=== PATIENT | male | born 1980 | race Caucasian/White ===

== ENCOUNTER 2021-03-26 09:00 | Emergency (ER) | payer MEDICAID, SELFPAY ==
[2021-03-26 09:01] VITALS: BP 146/92; PULSE 75; RESP 18; TEMP 36.4; O2SAT 97; BMI 27.6
[2021-03-26 09:37] VITALS: BP 146/92; PULSE 75; RESP 16; TEMP 36.2; O2SAT 96
--- NOTE | 2021-03-26 10:31 | EDS_ITS ---
HPI History of Present Illness Chief Complaint: Nausea/Vomiting/Diarrhea Informant: patient Narrative Narrative: 40-year-old male presenting to the emergency room with vomiting and diarrhea. Patient states that on Tuesday he started having nausea and diarrhea. He does note he has had a couple episodes of vomiting but mostly has been diarrhea. He is tried some Pepto-Bismol with no relief. He states whenever he eats or drinks anything he has diarrhea. No fevers. He denies any obvious bad food exposures. No recent antibiotics. No one else sick at home. PFSH PFSH Medical History no medical history Home Medications ciprofloxacin HCl 500 mg PO BID #10 tablet 03/26/21 [Rx Last Taken Unknown] multivitamin [Multiple Vitamin] 1 tab PO DAILY 03/26/21 [History Last Taken Unknown] ondansetron 4 mg PO Q6H PRN PRN #10 tab 03/26/21 [Rx Last Taken Unknown] Allergy/AdvReac Type Severity Reaction Status Date / Time No Known Allergies Allergy Verified 03/26/21 09:03 Family History unable to obtain Social History (Updated 03/26/21 @ 10:[address] Jonathan Payne, DO) Smoking Status: Current every day smoker tobacco type: cigarettes substance use type: does not use ROS ROS ED Constitutional Constitutional ED: Denies chills, fever(s) or weight loss Eyes Eyes: Denies change in vision or diplopia ENT ENT ED: Denies ear pain, rhinorrhea or sore throat Cardiovascular Cardiovascular: Denies chest pain, orthopnea, palpitations or racing heartbeat Respiratory/Chest Respiratory/Chest: Denies cough, dyspnea or orthopnea Gastrointestinal Gastrointestinal: Reports diarrhea, nausea, vomiting and other Details: Abdominal cramping ; Denies abdominal pain Genitourinary Genitourinary ED: Denies dysuria, hematuria or urinary frequency Musculoskeletal Musculoskeletal: Denies arthralgias or myalgias Integumentary Denies abscess or rash Neurologic Neurologic: Denies headache(s) or weakness Psychiatric Psychiatric: Denies anxiety, depression, suicidal ideation or suicidal thoughts Endocrine Endocrinology: Denies polydipsia, polyphagia or polyuria Allergic/Immunologic Allergic/Immunologic ED: Denies mouth swelling, tongue swelling or urticaria EXAM Physical Exam Const Vital Signs: 03/26/21 09:01 03/26/21 09:37 03/26/21 11:22 Temperature 97.6 F L 97.2 F L Temperature Source Temporal Oral Pulse Rate 75 75 64 Respiratory Rate 18 16 16 Blood Pressure 146/92 H 146/92 H 134/85 H Blood Pressure Mean 110 110 101 Pulse Ox 97 96 97 Oxygen Delivery Method Room Air Room Air Positive well nourished and well developed General Appearance ED: well developed HEENT Reports normocephalic, head/scalp atraumatic, TM's clear and moist mucous membr anes Negative for trauma Tympanic Membrane ED: Yes TM's clear Eyes PERRL and EOMs intact bilaterally Neck no lymphadenopathy, supple and no JVD Resp normal respiratory effort and clear to auscultation bilaterally Cardio regular rate, regular rhythm and no murmurs GI normal to inspection, nondistended, normoactive bowel sounds and non-tender Palpation: soft Back/Spine no CVA tenderness and normal ROM Extremity normal to inspection General Extremety ED: Negative for edema General Extremity: Negative for edema Neuro oriented x3 and CN's II-XII intact bilaterally Sensorium / Orientation: alert Motor Exam: strength 5/5 throughout Psych mental status grossly normal Mood & Affect: Negative for depressed or tearful Skin no rashes or lesions noted and no wounds MDM MDM MDM Narrative Medical decision making narrative: White count 8.7. CMP negative lipase of 67. Patient received a liter of IV fluids and Imodium as well as Zofran. Stool cultures were obtained. These are pending. Fecal leukocytes are positive. Patient will be started on ciprofloxacin. Also write for Zofran. Return if worsening or concerns Lab Data Attestation: I reviewed the patient's lab results. Labs: Laboratory Results - last 24 hr 03/26/21 03/26/21 10:10 10:10 WBC 8.7 RBC 4.87 Hgb 15.9 Hct 46.8 MCV 96.1 H MCH 32.6 H MCHC 34.0 RDW Std Deviation 44.3 H RDW Coeff of [place] 12.5 Plt Count 248 MPV 9.9 Immature Gran % (Auto) 0.600 Neut % (Auto) 80.2 H Lymph % (Auto) 12.0 L [place] % (Auto) 4.0 Eos % (Auto) 2.7 Baso % (Auto) 0.5 Absolute Neuts (auto) 7.0 Absolute Lymphs (auto) 1.04 Nucleated RBC % 0 Sodium 141 Potassium 4.0 Chloride 111 H Carbon Dioxide 25.0 Anion Gap 5 BUN 15 Creatinine 0.83 Estim Creat Clear Calc 140.30 Est GFR (MDRD) Af Amer 133 Est GFR (MDRD) Non-Af 110 BUN/Creatinine Ratio 18.1 Glucose 103 Calcium 8.5 Total Bilirubin 0.40 AST 30 ALT 40 Alkaline Phosphatase 72 Total Protein 6.6 Albumin 3.1 L Globulin 3.5 Albumin/Globulin Ratio 0.9 Lipase 67 L Discharge Plan Triage Chief Complaint: Nausea/Vomiting/Diarrhea ED Provider: Jonathan Payne Dx/Rx/DC Orders Clinical Impression: Diarrhea Instructions: ED Diarrhea, Unknown Cause Prescriptions: New ciprofloxacin HCl [ciprofloxacin HCl] 500 MG tablet 500 mg PO BID Qty: 10 RF: 0 ondansetron [ondansetron] 4 MG tablet 4 mg PO Q6H PRN PRN (Reason: Nausea) Qty: 10 RF: 0 No Action multivitamin [Multiple Vitamin] Tablet 1 tab PO DAILY RF: 0 Primary Care Provider: Care Physician,No Primary Referrals: Friend,Alexsander, DO [STAFF PHYSICIAN] - As Needed (For gastroenterology) Care Physician,No Primary [Primary Care Provider] - Disposition Disposition: Home, Self Care
[2021-03-26 10:56] LABS: Absolute Lymphocyte Count 1.04 X10^3/uL (0.83-4.51); Basophil# 0.04 X10^3/uL; Basophil% 0.5 % (0-1); Eosinophil# 0.23 X10^3/uL; Eosinophils% 2.7 % (0-5); Hematocrit 46.8 % (40-54); Hemoglobin 15.9 g/dL (13.0-16.5); Lymphocyte # 1.04 X10^3/ul (0.83-4.51); Mean Corpuscular Hgb 32.6 pg (27.0-32.0); Mean Corpuscular Volume 96.1 fL (80-94); Mean Platelet Vol. 9.9 fl (6.2-12.0); Monocyte# 0.35 X10^3/uL; NRBC Flagged by Analyzer 0 % (0-5); Neutrophil # 6.95 X10^3/uL (2.7-7.7); Neutrophil % 80.2 % (47-70); Platelet Count 248 K/mm3 (150-450); RBC Distribution Width CV 12.5 % (11.6-14.6); RBC Distribution Width SD 44.3 fl (35.1-43.9); Red Blood Count 4.87 M/mm3 (4.6-6.2); White Blood Count 8.7 K/mm3 (4.4-11.0)
[2021-03-26 11:12] LABS: ALB/GLOB Ratio 0.9 RATIO (0.9-2.4); AST(SGOT) 30 U/L (15-37); Alanine Aminotransfer ALT/SGPT 40 U/L (16-61); Albumin, Serum 3.1 g/dL (3.2-5.0); Alkaline Phosphatase 72 U/L (45-117); Anion Gap 5 (5-15); BUN 15 mg/dL (7-18); BUN/Creat Ratio 18.1 RATIO (10-20); Calcium,Total 8.5 mg/dL (8.5-10.1); Chloride 111 mmol/L (98-107); Creatinine, Serum 0.83 mg/dL (0.70-1.30); EST Glomerular Filtration Rate 110 mL/min (>60); Est Glom Filt Rate - Afr Amer 133 mL/min (>60); Globulin 3.5 g/dL (2.2-4.2); Glucose 103 mg/dL (74-106); Lipase 67 U/L (73-393); Protein, Total 6.6 g/dL (6.4-8.2); Sodium Level 141 mmol/L (136-145)
[2021-03-26 11:22] VITALS: BP 134/85; PULSE 64; RESP 16; O2SAT 97
[2021-03-26] MEDS: 0.9% Normal Saline 1,000 ML 1000 ML IV (11:22)
[2021-03-26] MEDS: Ondansetron 4 MG/2 ML Vial IV (11:22)
[2021-03-26] MEDS: Loperamide 2 MG Capsule 4 MG PO (11:22)
== END 2021-03-26 13:35 | disposition home or self-care (01) ==
PROVIDERS: Emergency Provider Emergency Medicine
DX: R19.7 Diarrhea, unspecified (principal); F17.210 Nicotine dependence, cigarettes, uncomplicated
CPT/HCPCS: 80053; 83630; 83690; 85025; 87177; 87209; 87426; 87493; 87506; 96361; 96374; 99284; J7030; A4216; J2405

== ENCOUNTER 2023-03-08 03:24 | Emergency (ER) | payer MEDICAID, SELFPAY ==
[2023-03-08 03:25] VITALS: BP 135/90; PULSE 84; RESP 16; TEMP 36.4; O2SAT 99; BMI 29.5
--- NOTE | 2023-03-08 03:55 | ED.VIS.DENTA ---
HPI History of Present Illness Chief Complaint: Dental Informant: patient Narrative Narrative: 42-year-old male presenting to the emergency department with dental pain. Patient states he has had a tooth broken right lower molar for quite some time. About a week ago it started to hurt he has an upcoming appointment with Angelica gresham Tuesday. Now he started notes some swelling enlarged lymph node and increased pain. He states Tylenol and Aleve were helping but now its not. No fevers. He denies air sensitivity. PFSH PFSH Medical History no medical history no medical history Home Medications hydrocodone-acetaminophen 5-325mg 5mg-325mg 1 tab PO Q6H PRN PRN Pain 3 days #12 TABLETS 03/08/23 [Rx Last Taken Unknown] penicillin V potassium 500 mg tablet 500 mg PO 4X/DAY #28 tabs 03/08/23 [Rx Last Taken Unknown] Allergy/AdvReac Type Severity Reaction Status Date / Time No Known Allergies Allergy Verified 03/08/23 03:25 Social History Smoking Status: Current every day smoker tobacco type: cigarettes substance use type: does not use ROS ROS ED Constitutional Constitutional ED: Denies chills or weight loss Eyes Eyes: Denies change in vision or diplopia ENT ENT ED: Reports other Details: Dental pain facial swelling ; Denies ear pain, rhinorrhea or sore throat Cardiovascular Cardiovascular: Denies chest pain, orthopnea, palpitations or racing heartbeat Respiratory/Chest Respiratory/Chest: Denies cough, dyspnea or orthopnea Gastrointestinal Gastrointestinal: Denies abdominal pain, diarrhea, nausea or vomiting Genitourinary Genitourinary ED: Denies dysuria, hematuria or urinary frequency Musculoskeletal Musculoskeletal: Denies arthralgias or myalgias Integumentary Denies abscess or rash Neurologic Neurologic: Denies headache(s) or weakness Psychiatric Psychiatric: Denies anxiety, depression, suicidal ideation or suicidal thoughts Endocrine Endocrinology: Denies polydipsia, polyphagia or polyuria Allergic/Immunologic Allergic/Immunologic ED: Denies mouth swelling, tongue swelling or urticaria EXAM Physical Exam Const Vital Signs: 03/08/23 03:25 Temperature 97.5 F L Temperature Source Temporal Pulse Rate 84 Respiratory Rate 16 Blood Pressure 135/90 H Blood Pressure Mean 105 Pulse Ox 99 Positive well nourished and well developed General Appearance ED: well developed HEENT Reports normocephalic, head/scalp atraumatic and moist mucous membranes HEENT Narrative: There is very local dental decay with loss of about 50% of the right lower posterior molar. No focal gum swelling but there is some mandibular swelling without erythema. There is an enlarged submandibular gland. Floor the mouth is soft. No trismus. Eyes PERRL and EOMs intact bilaterally Neck no lymphadenopathy, supple and no JVD Resp normal respiratory effort and clear to auscultation bilaterally Cardio regular rate, regular rhythm and no murmurs GI normal to inspection, nondistended, normoactive bowel sounds and non-tender Palpation: soft Back/Spine no CVA tenderness and normal ROM Extremity normal to inspection General Extremety ED: Negative for edema General Extremity: Negative for edema Neuro oriented x3 and CN's II-XII intact bilaterally Sensorium / Orientation: alert Motor Exam: strength 5/5 throughout Psych mental status grossly normal Mood & Affect: Negative for depressed or tearful Skin no rashes or lesions noted and no wounds MDM MDM MDM Narrative Medical decision making narrative: Patient was given a shot of Toradol and penicillin. I will write for a few [place] and penicillin and would recommend keeping his dental appointment next week. Return if worsening or concerns Discharge Plan Triage Chief Complaint: Dental ED Provider: Jonathan Payne Dx/Rx/DC Orders Clinical Impression: Periapical abscess, Pain, dental Instructions: ED Dental Abscess Prescriptions: New hydrocodone-acetaminophen [hydrocodone-acetaminophen] 5-325 mg tablet 1 tab PO Q6H PRN PRN (Reason: Pain) 3 Days Qty: 12 0RF penicillin V potassium 500 mg tablet 500 mg PO 4X/DAY Qty: 28 0RF Primary Care Provider: Care Physician,No Primary Referrals: Care Physician,No Primary [Primary Care Provider] - Activity Restrictions/Additional Instructions: Please follow-up with dentistry as soon as possible. Please return to the emergency department if worsening or concerns Disposition Disposition: Home, Self Care
[2023-03-08] MEDS: Ketorolac 60 MG/2 ML Vial IM (04:01)
[2023-03-08] MEDS: Penicillin Vk 250 MG Tablet 500 MG PO (04:01)
== END 2023-03-08 04:07 | disposition home or self-care (01) ==
PROVIDERS: Emergency Provider Emergency Medicine; Visit Provider Emergency Medicine
DX: K04.7 Periapical abscess without sinus (principal); R59.9 Enlarged lymph nodes, unspecified; F17.210 Nicotine dependence, cigarettes, uncomplicated
CPT/HCPCS: 96372; 99282

== ENCOUNTER 2023-08-26 15:11 | Emergency (ER) | payer MEDICAID, SELFPAY ==
[2023-08-26 15:12] VITALS: BP 138/78; PULSE 78; RESP 16; TEMP 36.4; O2SAT 98; BMI 30.3
--- NOTE | 2023-08-26 15:30 | EDS_ITS ---
HPI History of Present Illness Chief Complaint: Dental Informant: patient Onset/Context/Timing Onset: Days (several) Context: Gradual Onset Timing: Continuous Quality: throbbing Location: R mandib molar Current Severity: Moderate Maximum Severity: Moderate Associated Symptoms Assocated Symptom - Dental: jaw swelling; Negative for fever Narrative Narrative: 43-year-old male with a chronic issue with a decayed tooth that needs extracted but he cannot find a dentist that takes his insurance to take care of that. In the meantime in the last couple days he has developed worsening pain and swelling in the area and he fears he may be getting an abscess. He denies any taste of blood or pus in his mouth or fever/chills or other systemic symptoms. PFSH PFSH Medical History no medical history no medical history Home Medications hydrocodone-acetaminophen 5-325mg 5mg-325mg 1 tab PO Q6H PRN PRN Pain 3 days #12 TABLETS 03/08/23 [Rx Last Taken Unknown] amoxicillin 500 mg tablet 500 mg PO TID #30 tabs 08/26/23 [Rx Last Taken Unknown] Allergy/AdvReac Type Severity Reaction Status Date / Time No Known Allergies Allergy Verified 08/26/23 15:11 Social History Smoking Status: Current every day smoker tobacco type: cigarettes substance use type: does not use ROS ROS ED Constitutional Constitutional ED: Denies chills or fever(s) Eyes Eyes: Denies change in vision or double vision ENT ENT ED: Reports dental pain; Denies sinus pain or throat swelling Cardiovascular Cardiovascular: Denies chest pain or palpitations Respiratory/Chest Respiratory/Chest: Denies cough or dyspnea Integumentary Denies abscess or rash Neurologic Neurologic: Denies headache(s), paresthesias or weakness EXAM Physical Exam Const Vital Signs: 08/26/23 15:12 Temperature 97.6 F L Temperature Source Temporal Pulse Rate 78 Respiratory Rate 16 Blood Pressure 138/78 H Blood Pressure Mean 98 Pulse Ox 98 Oxygen Delivery Method Room Air Positive well nourished and well developed General Appearance ED: well developed and NAD HEENT HEENT Narrative: Tender decayed right mandibular second molar. No bleeding. No gingivitis. No necrotic tissue. No palpable intraoral mucosal-associated abscess. No trismus. No posterior oropharyngeal asymmetry, floor of the mouth is soft and nondistended, tongue normal. Externally, there is a very small knot palpable along the jawline/mandible near the body, but not fluctuant. Face and Sinus: sinuses nontender Throat: posterior oropharynx normal Eyes PERRL and EOMs intact bilaterally Neck no lymphadenopathy and supple Resp normal respiratory effort Neuro oriented x3 and CN's II-XII intact bilaterally Sensorium / Orientation: alert Gait (Neuro): normal gait Psych mental status grossly normal and thought process normal Skin no rashes or lesions noted and no wounds MDM MDM MDM Narrative Medical decision making narrative: Very small possible early abscess I do not think putting a needle in this is going to yield anything right now. It is very small and not fluctuant. Discus sed this with him I think antibiotics are indicated he is in agreement. Prescribed amoxicillin. Does not require anything for pain prescription. Discharge Plan Triage Chief Complaint: Dental ED Provider: Milan Hughes Dx/Rx/DC Orders Clinical Impression: Dental abscess Instructions: ED Tooth Abscess Prescriptions: New amoxicillin 500 mg tablet 500 mg PO TID Qty: 30 0RF Discontinued penicillin V potassium 500 mg tablet 500 mg PO 4X/DAY Qty: 28 0RF No Action hydrocodone-acetaminophen [hydrocodone-acetaminophen] 5-325 mg tablet 1 tab PO Q6H PRN PRN (Reason: Pain) 3 Days Qty: 12 0RF Primary Care Provider: Care Physician,No Primary Referrals: Care Physician,No Primary [Primary Care Provider] - Dentist,Your [STAFF PHYSICIAN] - As soon as possible (see attached resource list if needed) Disposition Disposition: Home, Self Care
[2023-08-26] MEDS: AMOXICILLIN 500 MG CAPSULE PO (15:35)
== END 2023-08-26 15:58 | disposition home or self-care (01) ==
LOC: ED 15:53
PROVIDERS: Emergency Provider Emergency Medicine; Visit Provider Emergency Medicine
DX: K04.7 Periapical abscess without sinus (principal); F17.210 Nicotine dependence, cigarettes, uncomplicated; K02.9 Dental caries, unspecified
CPT/HCPCS: 99282

== ENCOUNTER 2024-11-01 10:26 | Emergency (ER) | payer BC, SELFPAY ==
[2024-11-01] VITALS (10 sets, daily range): BP systolic 120–142; BP diastolic 74–96; PULSE 48–91; RESP 12–18; TEMP 37.1; O2SAT 98–99; BMI 24.7
--- NOTE | 2024-11-01 11:17 | EDS_ITS ---
HPI History of Present Illness Chief Complaint: Chest Pain Informant: patient Onset/Context/Timing Onset: Days (2) Activity at onset: gradual Timing: Waxes and wanes Quality: Positive for Aching Location: Left Chest Worsened By: Exertion Relieved By: Rest Associated Symptoms: Positive for Nausea, Vomiting, Diaphoresis, Dyspnea, Acid Reflux and Palpitations; Negative for Cough, Fever or Lightheadedness Narrative Narrative: Patient presents with chest pain that has been constant for the past 2 days. Patient states that has been waxing and waning. Patient states he has had intermittent chest pain for the past 4 days. Patient states he quit drinking alcohol 5 days ago. Patient describes his pain as aching. Patient states it is over the left parasternal and left chest area. Patient states it is worse with exertion. Patient states it is better with rest. Patient admits to some nausea and vomiting. Patient denies any cough or fever. Patient admits to some shortness of breath and diaphoresis. Patient also admits to some palpitations. CVD Risk Factors: Positive for Smoking; Negative for Hypertension, Diabetes, Hypercholesterolemia or Family History 1' </=55 PE Risk Factors: Negative for Recent Travel/Surgery, Recent Immobilization, Prior DVT or PE, Cancer or OCP + Smoking + >/=35 PFSH PFSH Medical History no medical history no medical history Home Medications ?Medication ?Instructions ?Recorded ?Last Taken ?Type NK 11/01/24 Unknown History Allergy/AdvReac Type Severity Reaction Status Date / Time No Known Allergies Allergy Verified 11/01/24 10:30 Surgical History (Updated 11/01/24 @ 11:[address] Babatunde Grant DO) S/P urethral surgery Social History Smoking Status: Current every day smoker tobacco type: cigarettes substance use type: does not use ROS ROS ED Constitutional Constitutional ED: Denies chills or fever(s) Eyes Eyes: Denies blurry vision or change in vision ENT ENT ED: Denies rhinorrhea or sore throat Cardiovascular Cardiovascular: Reports as per HPI, chest pain, palpitations and racing heartbeat Respiratory/Chest Respiratory/Chest: Reports dyspnea; Denies cough Gastrointestinal Gastrointestinal: Reports nausea and vomiting; Denies abdominal pain Genitourinary Genitourinary ED: Denies dysuria or hematuria Musculoskeletal Musculoskeletal: Reports neck pain; Denies back pain Integumentary Denies abscess or rash Neurologic Neurologic: Denies headache(s) or weakness Allergic/Immunologic Allergic/Immunologic ED: Denies mouth swelling or urticaria EXAM Physical Exam Const Vital Signs: 11/01/24 10:27 11/01/24 11:24 11/01/24 11:26 Temperature 98.7 F Temperature Source Oral Pulse Rate 91 66 Respiratory Rate 18 12 Blood Pressure 134/95 H 139/75 H Blood Pressure Mean 108 96 Pulse Ox 99 99 Oxygen Delivery Method Room Air Room Air Room Air 11/01/24 11:39 11/01/24 11:48 11/01/24 12:00 Temperature Temperature Source Pulse Rate 66 65 58 L Respiratory Rate Blood Pressure 139/75 H 120/80 125/80 H Blood Pressure Mean 95 Pulse Ox 98 Oxygen Delivery Method Room Air 11/01/24 13:00 11/01/24 14:00 11/01/24 15:00 Temperature Temperature Source Pulse Rate 57 L 53 L 51 L Respiratory Rate 15 Blood Pressure 142/96 H 135/81 H 134/83 H Blood Pressure Mean 111 99 100 Pulse Ox 98 98 98 Oxygen Delivery Method Room Air Room Air Room Air 11/01/24 16:00 11/01/24 16:05 Temperature 98.7 F Temperature Source Pulse Rate 48 L 48 L Respiratory Rate 16 Blood Pressure 131/74 H 131/74 H Blood Pressure Mean 93 93 Pulse Ox 99 99 Oxygen Delivery Method Room Air Positive well nourished and well developed General Appearance ED: well developed and NAD HEENT Reports moist mucous membranes normocephalic and atraumatic Neck supple and no JVD Chest Wall Chest: tenderness pectoral muscle left Resp normal respiratory effort and clear to auscultation bilaterally Cardio regular rate and regular rhythm GI soft to palpation, non-tender and non-distended Extremity normal to inspection General Extremety ED: Negative for edema or tenderness General Extremity: Negative for edema Neuro oriented x3, CN's II-XII intact bilaterally and no sensory deficits noted Sensorium / Orientation: awake and alert Motor Exam: strength 5/5 throughout Psych mental status grossly normal Heart Score History: Moderately Suspicious ECG: Normal Age: </= 45 years Risk Factors: 1 or 2 Risk Factors Troponin: </= Normal Limit Score: 2 MDM MDM MDM Narrative Medical decision making narrative: Differential diagnosis includes cardiac dysrhythmia, cardiac ischemia, pneumonia, bronchitis, gastroesophageal reflux disease, anemia, electrolyte abnormality, and anxiety. EKG will be obtained to assess for cardiac dysrhythmia and cardiac ischemia. Chest x-ray will be obtained to assess for pneumonia or bronchitis. CBC will be obtained to assess for leukocytosis and anemia. Basic metabolic profile will be obtained to assess for electrolyte abnormality and renal function. High-sensitivity troponin will be obtained to assess for cardiac ischemia. D-dimer will be obtained to assess for pulmonary e mbolism. 2-hour repeat high-sensitivity troponin will be obtained to assess for ongoing cardiac ischemia. History & Record Review Additional record(s) reviewed:: Prior ED visit and Prior labs Lab Data Attestation: I reviewed the patient's lab results. Lab results narrative: CBC was reviewed and was within normal limits. Basic metabolic profile was reviewed and was within normal limits. High-sensitivity troponin was reviewed and was less than 6. D-dimer was reviewed and was 0.27. 2-hour repeat high- sensitivity troponin was reviewed and was less than 6. Labs: Laboratory Results - last 24 hr 11/01/24 11/01/24 11/01/24 12:30 13:45 15:10 WBC 9.1 RBC 4.68 Hgb 15.2 Hct 44.1 MCV 94.2 H MCH 32.5 H MCHC 34.5 RDW Std Deviation 42.9 RDW Coeff of [place] 12.4 Plt Count 278 MPV 9.3 Immature Gran % (Auto) 0.300 Neut % (Auto) 62.2 Lymph % (Auto) 26.0 [place] % (Auto) 8.8 Eos % (Auto) 2.0 Baso % (Auto) 0.7 Absolute Neuts (auto) 5.7 Absolute Lymphs (auto) 2.36 Nucleated RBC % 0 D-Dimer Quant (PE/DVT) 0.27 Sodium 140 Potassium 4.0 Chloride 105 Carbon Dioxide 24.6 Anion Gap 11 BUN 15 Creatinine 0.88 Estim Creat Clear Calc 127.14 Est GFR (MDRD) Non-Af 110 BUN/Creatinine Ratio 17.5 Glucose 90 Calcium 8.9 Troponin T High Sens < 6 Troponin T Hi Sens 4Hr < 6 Radiography Chest X-Ray - ED: 1 View, Read by ED Physician, Read by Radiologist and No Acute Disease Diagnostic Testing: Clinical Impression(s) from Imaging Studies Chest X-Ray 11/01/24 11:32 IMPRESSION: No Acute Findings. Reading Location: [facility] Portable 1 view chest x-ray was obtained. On my independent interpretation, lung cooper are clear. There is normal cardiac silhouette. Bony thorax is normal. There is no acute process noted. Radiologist also interpreted the x- ray and agrees. EKG Initial EKG: Attestation: I personally reviewed and interpreted this EKG as follows: Interpretation: Sinus Rhythm (89) and No Acute Injury Pattern Comments: EKG was obtained. On my independent interpretation, it showed a normal sinus rhythm with a rate of 89. ND interval, QRS interval, and QTc intervals were all normal. [place] was normal. There are no acute ST or T wave changes. Prior EKG tracings: not available for review Prior: No Prior Treatment and Re-Evaluation :: Patient was given aspirin and sublingual nitroglycerin here. Patient was feeling better on reevaluation. Patient was advised of his findings. Patient has a HEART score of 2. Patient was advised that this is low risk for acute cardiac event. Patient was instructed to follow-up with a primary care physician in 5 to 7 days. Patient was instructed to return if worse in any way. Patient understood and was agreeable with the plan. All questions were answered. Discharge Plan Triage Chief Complaint: Chest Pain ED Provider: Babatunde Grant Dx/Rx/DC Orders Clinical Impression: Chest pain, Elevated blood pressure reading Instructions: ED Chest Pain, Uncertain Cause Prescriptions: No Action NK Primary Care Provider: Care Physician,No Primary Referrals: Cammie Garcia MD [Med Staff - Certified Public Accountant] - 5-7 Days Care Physician,No Primary [Primary Care Provider] - Print Language: [place] Disposition Disposition: Home, Self Care
--- NOTE | 2024-11-01 11:32 | RAD_ITS ---
PROCEDURE: CHEST 1 VIEW (PORTABLE) 11/01/2024 REASON FOR EXAM: CHEST PAIN TECHNIQUE: Frontal view of the chest. COMPARISON: None FINDINGS: Hardware: EKG electrodes. Heart: The heart size is normal. Lungs: The lungs are clear. Bones: The bones are unremarkable. Other: RAD/Chest 1 View (Portable) IMPRESSION: No Acute Findings. Reading Location: [place] [id number]
[2024-11-01] MEDS: Nitroglycerin SL (ED/IMG/CATH) 0.4 MG TABLET SL ×2 (11:39→11:48)
[2024-11-01 12:41] LABS: Hematocrit 44.1 % (40-54); Hemoglobin 15.2 g/dL (13.0-16.5); Immature Granulocytes Count 0.030 X10^3/uL (0.0-0.0); Mean Corp Hgb Conc 34.5 g/dL (32-36); Mean Corpuscular Volume 94.2 fL (80-94); Mean Platelet Vol. 9.3 fl (6.2-12.0); NRBC Flagged by Analyzer 0 % (0-5); Platelet Count 278 K/mm3 (150-450); RBC Distribution Width CV 12.4 % (11.6-14.6); RBC Distribution Width SD 42.9 fl (35.1-43.9); Red Blood Count 4.68 M/mm3 (4.6-6.2); White Blood Count 9.1 K/mm3 (4.4-11.0)
[2024-11-01 13:13] LABS: D-Dimer Quantitative (DVT/PE) 0.27 FEU/ug/m (0.27-0.49)
[2024-11-01 14:42] LABS: Anion Gap 11 (5-15); BUN 15 mg/dL (4-19); BUN/Creat Ratio 17.5 RATIO (10-20); Calcium,Total 8.9 mg/dL (7.6-11.0); Carbon Dioxide 24.6 mmol/L (21.0-32.0); Chloride 105 mmol/L (98-108); Estimated Creatinine Clearance 127.14 ml/min (50-250); Glucose 90 mg/dL (70-99); Potassium 4.0 mmol/L (3.3-5.1)
[2024-11-01 14:43] LABS: Troponin T High Sensitivity < 6 ng/L (<=22)
[2024-11-01 15:52] LABS: Troponin T High Sens 4 HR < 6 ng/L (<=22)
== END 2024-11-01 16:21 | disposition home or self-care (01) ==
PROVIDERS: Emergency Provider Emergency Medicine; Visit Provider Emergency Medicine
DX: R07.9 Chest pain, unspecified (principal); R03.0 Elevated blood-pressure reading, without diagnosis of hypertension; R00.2 Palpitations; R11.2 Nausea with vomiting, unspecified; R06.02 Shortness of breath; K21.9 Gastro-esophageal reflux disease without esophagitis; F17.210 Nicotine dependence, cigarettes, uncomplicated
CPT/HCPCS: 71045; 80048; 84484; 85025; 85379; 93005; 99284; A4216